=== PATIENT | female | born 1965 | race Caucasian/White ===

== ENCOUNTER 2018-09-28 08:44 | Day surgery (SDC) | payer OTHER ==
[~2018-09-28 08:44] MED LIST: CEFAZOLIN 2 GM/50 ML (PMX) 50 ML IVPB
[2018-09-28] MEDS ORDERED: PROPOFOL 20 ML (10:22)
[2018-09-28] MEDS ORDERED: MEPERIDINE 100 MG INJ (10:22)
[2018-09-28] MEDS ORDERED: METOCLOPRAMIDE 10 MG INJ (10:22)
[2018-09-28] MEDS ORDERED: ONDANSETRON 4 MG INJ (10:22)
[2018-09-28] MEDS ORDERED: LIDOCAINE 2% (SDV) 5 ML INJ (10:22)
[2018-09-28] MEDS ORDERED: CEFAZOLIN 1 GM INJ (10:22)
[2018-09-28] MEDS: ISOSULFAN BLUE 1% 5 ML INJ SC (10:53)
[2018-09-28] MEDS: BUPIVACAINE 0.25%/EPI (SDV) 30 ML INJ (11:03)
[2018-09-28] MEDS: LIDOCAINE 1% (MPF) 30 ML INJ (11:03)
[2018-09-28] MEDS ORDERED: DIPHENHYDRAMINE 50 MG INJ IV (11:30)
[2018-09-28] MEDS ORDERED: FENTAnyl 50 MCG/ML VIAL IV ×2 (11:30)
[2018-09-28] MEDS ORDERED: METOCLOPRAMIDE 10 MG INJ IV (11:30)
[2018-09-28] MEDS ORDERED: OXYCODONE/ACETAMINOPHEN (5/325) TAB PO ×2 (11:30)
[2018-09-28] MEDS ORDERED: MEPERIDINE 25 MG INJ IV (11:30)
[2018-09-28] MEDS ORDERED: LABETALOL HCL 20MG INJ IV (11:30)
[2018-09-28] MEDS ORDERED: hydrALAzine 20 MG INJ IV (11:30)
[2018-09-28] MEDS ORDERED: EPHEDrine 25 MG/5 ML SYG IV (11:30)
[2018-09-28] MEDS ORDERED: MIDAZOLAM 1 MG/ML 2 ML INJ IV (11:30)
[2018-09-28] MEDS ORDERED: HYDROmorphONE 1 MG/5 ML IV SYRINGE IV ×2 (11:30)
[2018-09-28] MEDS ORDERED: morphine 10 MG INJ IM (13:00)
[2018-09-28] MEDS ORDERED: HYDROCODONE/APAP (5/325) TAB PO (13:00)
[2018-09-28] MEDS ORDERED: ONDANSETRON 4 MG INJ IV (13:00)
[2018-09-28] MEDS ORDERED: IBUPROFEN 600 MG TAB PO (13:00)
[2018-09-28] MEDS: ONDANSETRON 4 MG INJ IV ×2 (13:21→17:01)
[2018-09-28] MEDS: FENTAnyl 50 MCG/ML VIAL IV (13:35)
[2018-09-28] MEDS: HYDROmorphONE 1 MG/5 ML IV SYRINGE IV (14:44)
== END 2018-09-28 18:15 | disposition home or self-care (01) ==
LOC: SDS 08:44
DX: C50.912 Malignant neoplasm of unspecified site of left female breast (principal)
CPT/HCPCS: 19301; 84703; 88307; 88331